=== PATIENT | male | born 1965 | race Caucasian/White ===

== ENCOUNTER → 2023-11-11 12:35 | Outpatient (REF) | payer OTHER, SELFPAY | LOC: REG 12:35 | PROVIDERS: ATTENDING PHYSICIAN Family Medicine | DX: R05.1 Acute cough (principal); R04.2 Hemoptysis | CPT/HCPCS: 71046 ==

== ENCOUNTER 2024-12-04 15:35 | Emergency (ER) | payer OTHER, SELFPAY ==
[2024-12-04 16:42] LABS: % Basophils 0.6 % (0-2); % Eosinophils 0.4 % (0-6); % Immature Granulocytes 0.3 % (0-0.5); % Lymphocytes 10.5 % (20.5-51.1); % Monocytes 4.5 % (1.7-9.3); % Neutrophils 83.7 % (42.2-75.2); Absolute Basophils 0.1 10^3/uL (0-0.2); Absolute Eosinophils 0.1 10^3/uL (0-0.7); Absolute Lymphocytes 1.3 10^3/uL (1.2-3.4); Absolute Monocytes 0.6 10^3/uL (0.1-0.6); Absolute Neutrophils 10.3 10^3/uL (1.4-6.5); Hematocrit 45.7 % (39.0-52.0); Hemoglobin 16.1 g/dL (13.0-18.0); Mean Corp Hgb Conc. 35.2 g/dL (33.0-37.0); Mean Corpuscular Hgb 32.9 pg (27.0-31.0); Mean Corpuscular Volume 93.5 fL (80.0-94.0); Mean Platelet Volume 10.4 fL (7.4-10.4); Nucleated Red Blood Cells % 0 % (-); Platelet Count 200 10^3/uL (130-400); Red Blood Cell Count 4.89 10^6/uL (4.70-6.10); Red Cell Dist. Width 11.6 % (11.5-14.5); White Blood Cell Count 12.3 10^3/uL (4.8-10.8)
[2024-12-04 17:01] LABS: ALT (SGPT) 24 U/L (0-50); AST (SGOT) 21 U/L (17-59); Albumin 4.4 g/dl (3.5-5.0); Alkaline Phosphatase 70 U/L (38-126); Blood Urea Nitrogen 24 mg/dl (9-20); Calcium 9.9 mg/dl (8.4-10.2); Carbon Dioxide 24 mmol/L (22-30); Chloride 105 mmol/L (98-107); Glucose 219 mg/dl (70-99); Potassium 4.5 mmol/L (3.5-5.1); Sodium 139 mmol/L (135-145); Total Bilirubin 0.8 mg/dl (0.2-1.3); Total Protein 6.8 g/dl (6.3-8.2); eGFR > 60.00
[2024-12-04] MEDS: NSS 1000 IV (17:21)
[2024-12-04] MEDS: ZOFRAN 4 MG IV ×2 (18:03→21:22)
[2024-12-04] MEDS: DILAUDID 1 MG IV (18:03)
--- NOTE | 2024-12-04 18:13 | ED.GENMED ---
History of Present Illness
General
Chief Complaint: Flank Pain
Source: patient
Exam Limitations: none
Time Seen by Provider: 12/04/24 17:38
Nursing documentation reviewed up to this point in time: agreed with
History of Present Illness
History of Present Illness:
59-year-old male presenting to the emergency department today with concerns of 2 days of right-sided flank pain. To mild urinary symptoms and nausea. Went to urgent care was sent to the ER for assessment of possible kidney stone. He has not had
kidney stones in the past this feels similar.. Denies any fevers vomiting chest pain shortness of breath
Past History
Past History
ED Past Medical History: NIDDM and Other (Kidney stones)
Social History
Tobacco: Non-smoker
Review of Systems
Review of Systems
Allergies reviewed?: Yes
All Other Systems: ROS reviewed and negative except as documented in HPI and ROS
Phy Exam
Physical Exam
Physical Exam:
GENERAL: Alert , in no apparent distress
EYE: pupils equal and reactive
NECK: Supple, no significant adenopathy.
ENT: o/p clr, mmm.
CARDIAC: Regular rate and rhythm .
LUNGS: Clear breath sounds bilaterally, no acute respiratory distress, no wheezes/rales/rhonchi
ABDOMEN: Soft, without focal tenderness, no r/g, no cvat
NEUROLOGICAL: Alert and oriented, no focal neuro deficits
SKIN: Warm and dry, skin intact.
MUSCULOSKELETAL: No edema, well perfused.
PSYCH: Normal and appropriate interaction.
Course
Orders/Labs/Results
Orders:
Orders
12/04/24 16:23
CT Abd/pelvis Wo Iv Cont Urgent
Comment:
Reason For Exam: right flank pain
12/04/24 16:27
Complete Blood Count/With Diff Urgent
Comprehensive Metabolic Panel Urgent
12/04/24 17:21
0.9% Sodium Chloride 1000 ml [Nss] 1,000 ml IV BOLUS
12/04/24 17:52
HYDROmorphone [Dilaudid] 1 mg IV NOW STA
12/04/24 17:56
Ondansetron Injectable [Zofran] 4 mg IV NOW STA
12/04/24 19:41
Lorazepam [Ativan] 1 mg IV NOW STA
12/04/24 20:53
Urinalysis Reflex To Culture Urgent
Date Specimen was Collected: 12/04/24
Time Specimen was Collected: 20:48
Urine Microscopic Reflex Cult Urgent
12/04/24 21:10
HYDROmorphone [Dilaudid] 0.5 mg IV NOW STA
Ondansetron Injectable [Zofran] 4 mg IV NOW STA
Abnormal Lab Results
12/04/24 12/04/24
16:27 20:53
WBC 12.3 H 10^3/uL
(4.8-10.8)
MCH 32.9 H pg
(27.0-31.0)
Absolute Neuts (auto) 10.3 H 10^3/uL
(1.4-6.5)
Neutrophils % 83.7 H %
(42.2-75.2)
Lymphocytes % 10.5 L %
(20.5-51.1)
BUN 24 H mg/dl
(9-20)
Glucose 219 H mg/dl
(70-99)
Urine Ketones 3+ A
(Negative)
Ur Occult Blood Reflex 4+ A
(Negative)
Urine RBC 40-50 A /HPF
(0-2)
Urine Bacteria (Reflex) Few A
(Negative)
Urine Glucose 4+ A
(Negative)
Urine Albumin (Reflex) 2+ A
(Neg - Trace)
12/04/24 16:27
12/04/24 16:27
Vital Signs
Initial and Last Documented VS:
Initial Vital Signs
Temp Pulse Resp BP Pulse Ox
98.4 F 91 16 153/99 99
12/04/24 16:02 12/04/24 16:02 12/04/24 16:02 12/04/24 16:02 12/04/24 16:02
Last Documented Vital Signs
Temp Pulse Resp BP Pulse Ox
98.4 F 88 16 130/79 95
12/04/24 16:02 12/04/24 21:25 12/04/24 21:25 12/04/24 21:25 12/04/24 21:25
MDM/Problems Addressed
MDM/Problems Addressed:
59-year-old male presenting to the emergency department today with concerns of 2 days of right-sided flank pain associated nausea no vomiting diarrhea no chest pain or shortness of breath. No fevers. On arrival blood pressure elevated otherwise
vital signs are normal. Patient appears uncomfortable was given increased pain medications previously was given Toradol 60 mg at the urgent care. Patient was also given fluids. Plan for CT scan for further assessment possible kidney stone.
Patient found to have a 6 mm obstructing stone. Case discussed with urology recommending trial of passage and outpatient follow-up. Patient okay with plan discharge return precautions given.
*Critical Care Note
Total Time (30-74mins, 75-104mins- exclusive of procedures): Not Applicable
ED Attending Note
-
Portions of this chart may have been created with voice recognition software.� Occasional wrong word or��sound alike� substitutions may have occurred due to the inherent limitations of voice recognition software.
Discharge Plan
Departure
Patient Disposition: Home (Routine Discharge)
Date of Disposition: 12/04/24
Time of Disposition: 21:20
Patient with high blood pressure during this ER visit?: No
Condition: Good
Covid-19: Not Applicable
Discharge Problem:
Calculus, ureteral
Instructions: Kidney Stones (DC), How to Strain Your Urine, Narcotic Pain Medication
Prescriptions:
New
ketorolac 10 mg tablet
10 mg PO Q8H PRN (Reason: Pain) 4 Days Qty: 10 0RF
oxycodone 5 mg tablet
5 mg PO Q8H PRN (Reason: Pain) Qty: 7 0RF
ondansetron 4 mg tablet,disintegrating
4 mg PO Q6H PRN (Reason: nausea and vomiting) Qty: 7 0RF
tamsulosin [Flomax] 0.4 mg capsule
0.4 mg PO HS Qty: 7 0RF
No Action
meloxicam 15 mg Tablet
15 mg PO DAILY
losartan 25 mg Tablet
25 mg PO DAILY
insulin aspart U-100 [Novolog FlexPen U-100 Insulin] 100 unit/mL (3 mL) Insulin Pen
12 unit SC TID
rosuvastatin 5 mg Tablet
5 mg PO DAILY
omega 2-eki-fsi-fish oil [Fish Oil] 1,200 (144-216) mg Capsule
1 cap PO DAILY
Referrals:
Gary Causey DO [Family Provider] -
Rommel Sofia Jr., MD [Active] - Follow up in 5-7 days
Activity Restrictions/Additional Instructions:
You came to the emergency department today with concerns of flank pain. You are found to have a kidney stone. Please follow closely with urology and take the prescribed medications to help with symptoms. Return for any worsening, new or
concerning symptoms.
Interventions
Interventions:
*Risk Screen - Suicide Last Done: 12/04/24 16:02
*General Assessment Last Done: 12/04/24 17:16
*Neglect/Abuse Screening Last Done: 12/04/24 16:02
ED- Fall Risk Assessment Last Done: 12/04/24 17:18
*ED COVID-19 Vaccine History Last Done: 12/04/24 17:16
*Nursing Disposition Last Done: 12/04/24 21:57
LP-Zdimhb-Vcbqwzuopl Assessment Last Done: 12/04/24 19:57
ED-Male Genitourinary Assessment Last Done: 12/04/24 19:57
Discharge Date and Time
Discharge Date/Time: 12/04/24 21:57
Print Language: AZERI
[2024-12-04] MEDS: ATIVAN 1 MG IV (19:49)
--- NOTE | 2024-12-04 19:59 | EDRN ---
Pt was brought back from CT and tech informed this RN she was unable to complete scan because pt claustrophobic and needs medication to relax him. [place] TRAYLOR informed. Pt says his pain/nausea were better after dilaudid and zofran however when he
went to CT it started getting worse. Pt says he tried to lie on the table three times without success, understands his head will not be in the scanner. Pt expressed concern about his arms having to be raised above his head, that it wasn't normal.
Pt said he once took 3 xanax to get an MRI and had to be guided to the table. Pt has someone picking him up when/if he is discharged. Pt urinated in urinal - this RN strained the urine, no stone noted. Pt medicated with ativan IV, sitting on side
of stretcher listening to music.
[2024-12-04 21:00] LABS: Urine Albumin 2+ (Neg - Trace); Urine Bilirubin Negative (Negative); Urine Character Clear (Clear); Urine Color Yellow; Urine Glucose 4+ (Negative); Urine Ketone 3+ (Negative); Urine Leukocyte Negative (Negative); Urine Nitrite Negative (Negative); Urine Occult Blood 4+ (Negative); Urine Urobilinogen Negative (Neg - 1+)
[2024-12-04] MEDS: DILAUDID 0.5 MG IV (21:25)
[2024-12-04 21:42] LABS: Urine Bacteria Few (Negative); Urine Red Blood Cell 40-50 /HPF (0-2); Urine White Cell 0-2 /HPF (0-5)
== END 2024-12-04 21:57 | disposition home or self-care (01) ==
LOC: EMR 15:35
PROVIDERS: Emergency Medicine; Physician Assistant; EMERGENCY PHYSICIAN Emergency Medicine; FAMILY PHYSICIAN Family Medicine
DX: N20.1 Calculus of ureter (principal); R11.0 Nausea; E11.9 Type 2 diabetes mellitus without complications; Z87.442 Personal history of urinary calculi
CPT/HCPCS: 99284; 96374; 96375 ×2; 96361; 96376 ×2; 74176; 80053; 81003; 81015; 85025

== ENCOUNTER 2024-12-07 06:30 | Day surgery (SDC) | payer OTHER, SELFPAY ==
[2024-12-07 08:38] LABS: Glucose - Point of Care 324 mg/dl (70-99)
[2024-12-07] MEDS: TYLENOL 1000 MG PO (08:45)
[2024-12-07] MEDS: NORMOSOL-R/PLASMALYTE-A 1000 IV (08:46)
[2024-12-07 10:12] LABS: Glucose - Point of Care 234 mg/dl (70-99)
[2024-12-07] MEDS: NOVOLOG vial 2 UNITS SC (10:32)
[2024-12-07] MEDS: ZOFRAN 4 MG IV (10:52)
== END 2024-12-07 11:40 | disposition home or self-care (01) ==
LOC: SDS 06:30
PROVIDERS: ATTENDING PHYSICIAN Specialist
DX: N20.2 Calculus of kidney with calculus of ureter (principal)
CPT/HCPCS: 52356; 74018; 76000; 82365; 82962; 93005; C1894; C2617

== ENCOUNTER 2025-07-25 20:40 | Inpatient (IN) | payer OTHER, SELFPAY ==
[2025-07-25 14:24] VITALS: BP 173/90
--- NOTE | 2025-07-25 14:46 | ED.GENMED ---
History of Present Illness
General
Chief Complaint: Flank Pain
Source: patient
Time Seen by Provider: 07/25/25 14:32
History of Present Illness
History of Present Illness:
60-year-old male with past medical history of hypertension, hyperlipidemia, insulin-dependent diabetes, previous kidney stones presenting to the emergency department for evaluation of a sudden onset of left flank pain described to be mild on Thursday
evening and Thursday while on vacation in [facility], symptoms felt similar to previous kidney stones although patient noted that the pain seemed to subside Thursday evening. Today while at home pain started again suddenly with much more intense
in the left flank radiating towards the left lower abdomen accompanied with some mild nausea but no vomiting. Patient states he feels an urge to urinate but states he only has a little bit of urine when he does attempt to micturate. Patient
without any fevers, chills, rigors, bowel changes, hematuria or dysuria, testicular pain, urethral discharge or bleeding or any other concerns presently. Contacted his primary care provider to obtain pain medication and outpatient CT but was the to
the ER for further evaluation. He does note that he required a stent last January for a kidney stone previously.
Past History
Past History
ED Past Medical History: HTN, Hypercholesterolemia, IDDM and Other (Kidney stones)
ED Past Surgical History: Urological
Social History
Tobacco: Non-smoker
Alcohol: Occasional
Drug: None
Personal:
Living: with family
Review of Systems
Review of Systems
All Other Systems: ROS reviewed and negative except as documented in HPI and ROS
Phy Exam
Physical Exam
Physical Exam:
GENERAL: Alert , appears uncomfortable, pacing in room
EYE: clear conjunctiva b/l
HEAD: NCAT
ENT: o/p clr, mmm.
CARDIAC: Regular rate and rhythm .
LUNGS: Clear breath sounds bilaterally, no acute respiratory distress, no wheezes/rales/rhonchi
ABDOMEN: Soft, without focal tenderness, no r/g, no cvat
NEUROLOGICAL: Alert and oriented
SKIN: Warm and dry, skin intact.
MUSCULOSKELETAL: well perfused.
PSYCH: Normal and appropriate interaction.
Scores
Heart Failure Risk
Heart Failure Risk Score: Not Applicable
Heart Score for Chest Pain Patients
STEMI patient?: Not applicable
Withdrawal Assessment of Alcohol
Withdrawal Assessment Completed?: Not applicable
Course
Orders/Labs/Results
Orders:
Orders
07/25/25 14:33
0.9% Sodium Chloride 1000 ml [Nss] 1,000 ml IV BOLUS
Ketorolac [Toradol] 30 mg IV NOW STA
Ondansetron Injectable [Zofran] 4 mg IV NOW STA
07/25/25 14:46
CT Abd/pel Without Iv Or Oral Urgent
Comment:
Reason For Exam: left flank pain, hx of stones
07/25/25 14:53
Complete Blood Count/With Diff Urgent
Comprehensive Metabolic Panel Urgent
Lipase Urgent
Urinalysis Reflex To Culture Urgent
Date Specimen was Collected: 07/25/25
Time Specimen was Collected: 14:40
Urine Microscopic Reflex Cult Urgent
Urine Culture Urgent
SCOTTY Source: U
Specimen Description:
Date Specimen was Collected: 07/25/25
Time Specimen was Collected: 14:40
07/25/25 15:39
HYDROmorphone [Dilaudid] 0.5 mg IV NOW STA
07/25/25 16:17
HYDROmorphone [Dilaudid] 0.5 mg IV NOW STA
07/25/25 17:07
Clonazepam [Klonopin] 1 mg PO NOW STA
07/25/25 19:53
Admit/Transfer Patient As Directed
Co-Sign Provider:
Level of Care: Inpatient admission
Assign to:: Medical/Surgical
Physician / Group: Tiffany
Diagnosis: left obstructing ureteral stone
Reason for Hospitalization: left obstructing ureteral stone
Expected length of stay greater than two midnights?: Yes
ELOS- Estimated Length of Stay in days: 2
I certify the patient meets the requirements for IP care: Yes
Code Status As Directed
Resuscitation Status: Full Code
PRN Pain Medication Management As Directed
May give lesser potent ordered pain med per pt: Yes
preference::
Protocol:: Medication orders for pain may be administered in a
manner that supports deferring to patient preference
when the pt is:
- Requesting an ordered lesser potent pain medication.
Least to most potent pain medications are defined
as: acetaminophen < NSAID < tramadol < opioids
(morphine, oxycodone, hydromorphone).
- Requesting a lesser dose of the same medication IF
ORDERED.
- Requesting a less intrusive route of administration
if both routes are prescribed by the provider (PO <
IV).
Abnormal Lab Results
07/25/25
14:53
Hgb 18.3 H g/dL
(13.0-18.0)
MCH 32.7 H pg
(27.0-31.0)
MPV 10.9 H fL
(7.4-10.4)
Absolute Neuts (auto) 7.2 H 10^3/uL
(1.4-6.5)
Absolute Monos (auto) 0.9 H 10^3/uL
(0.1-0.6)
Lymphocytes % 18.3 L %
(20.5-51.1)
Chloride 96 L mmol/L
(98-107)
BUN 43 H mg/dl
(9-20)
Glucose 206 H mg/dl
(70-99)
Calcium 11.3 H mg/dl
(8.4-10.2)
Total Bilirubin 1.8 H mg/dl
(0.2-1.3)
Total Protein 8.5 H g/dl
(6.3-8.2)
Albumin 5.3 H g/dl
(3.5-5.0)
Urine Ketones 2+ A
(Negative)
Ur Occult Blood Reflex 4+ A
(Negative)
Urine Bilirubin 1+ A
(Negative)
Leukocyte Esterase Rfl 1+ A
(Negative)
Urine RBC 11-15 A /HPF
(0-2)
Urine Bacteria (Reflex) Few A
(Negative)
Urine Glucose 2+ A
(Negative)
Urine Albumin (Reflex) 3+ A
(Neg - Trace)
07/25/25 14:53
07/25/25 14:53
Vital Signs
Initial and Last Documented VS:
Initial Vital Signs
Temp Pulse Resp BP Pulse Ox
98.1 F 121 20 173/90 96
07/25/25 14:24 07/25/25 14:24 07/25/25 14:24 07/25/25 14:24 07/25/25 14:24
Last Documented Vital Signs
Temp Pulse Resp BP Pulse Ox
98.2 F 95 16 130/97 99
07/25/25 16:52 07/25/25 16:52 07/25/25 16:52 07/25/25 16:52 07/25/25 16:52
MDM/Problems Addressed
Differential Diagnosis Includes:
Renal/ureteral colic
Pyelonephritis
Prostatitis
Dissection
Diverticulitis
Pancreatitis
Colitis
MDM/Problems Addressed:
60-year-old male presenting to the ER for evaluation of sudden onset left-sided flank pain accompanied with nausea. Symptoms initially started this past Thursday evening while on vacation, seem to have subsided by Thursday. Today pain much worse with
sudden onset and similar to previous kidney stone pain. Will obtain labs and CT imaging. Treatment with Toradol, Zofran and fluids. Reassessment following.
Chronic conditions affecting care: Other (Previous kidney stones)
*Radiology
Radiology exam reviewed: radiology read reviewed
*Pulse Oximetry
SaO2: 96
Oxygen Mode of Delivery: Room air
Patient hypoxic: no
*Critical Care Note
Total Time (30-74mins, 75-104mins- exclusive of procedures): Not Applicable
Data Reviewed
Review of Other/Old Records Reveals: Labs and Records
Comment
Comment:
3:40 PM: Patient with minimal relief following Toradol. Nausea improved. Will treat with half a milligram of Dilaudid for additional pain control.
Patient noted slight relief with 1/2 mg of Dilaudid but pain persisted so an additional half milligram was given. Patient went to CT scan and had a panic attack which he states is related to claustrophobia. I did treat with a half a milligram of
Klonopin. Patient was able to then go to CT scan.
Patient Management
Discussion with other providers: Hospitalist and Clerical Secretary
Escalation/DeEscalation of care consider admission/obs:
Patient CT scan shows a large 8 mm mid left ureteral stone with hydronephrosis. Given the size of the stone as well as need for previous stenting in the past, decision was made to admit the patient with urology in consultation. Urology came to the
bedside to evaluate the patient and did offer a stent but that he would likely further procedure. Patient ultimately opted to forego this for more permanent and one-time solution and going to the emergency department. Hospitalist team was notified
and accepts for continued evaluation and treatment.
ED Attending Note
-
Portions of this chart may have been created with voice recognition software.� Occasional wrong word or��sound alike� substitutions may have occurred due to the inherent limitations of voice recognition software.
Discharge Plan
Departure
Patient Disposition: Admit
Date of Disposition: 07/25/25
Time of Disposition: 19:05
Presentation/result/management discussed w/ accepting MD/DO: Hospitalist
Discharge Problem:
Ureterolithiasis
Prescriptions:
No Action
meloxicam 15 mg Tablet
15 mg PO DAILY
losartan 25 mg Tablet
25 mg PO DAILY
insulin aspart U-100 [Novolog FlexPen U-100 Insulin] 100 unit/mL (3 mL) Insulin Pen
12 unit SC TID
rosuvastatin 5 mg Tablet
5 mg PO DAILY
omega 1-zby-wxh-fish oil [Fish Oil] 1,200 (144-216) mg Capsule
1 cap PO DAILY
ketorolac 10 mg tablet
10 mg PO Q8H PRN (Reason: Pain) 4 Days Qty: 10 0RF
oxycodone 5 mg tablet
5 mg PO Q8H PRN (Reason: Pain) Qty: 7 0RF
ondansetron 4 mg tablet,disintegrating
4 mg PO Q6H PRN (Reason: nausea and vomiting) Qty: 7 0RF
tamsulosin [Flomax] 0.4 mg capsule
0.4 mg PO HS Qty: 7 0RF
Referrals:
Gary Causey DO [Family Provider, Family Practice]
Interventions
Interventions:
*Risk Screen - Suicide Last Done: 07/25/25 14:24
*General Assessment Last Done: 07/25/25 14:24
CM-Mcflbj-Qreocueqyd Assessment Last Done: 07/25/25 15:13
ED-Male Genitourinary Assessment Last Done: 07/25/25 15:13
Discharge Date and Time
Print Language: MONGOLIAN
[2025-07-25] MEDS: NSS 1000 IV (14:50)
[2025-07-25] MEDS: ZOFRAN 4 MG IV ×2 (14:50→21:01)
[2025-07-25] MEDS: TORADOL 30 MG IV (14:50)
[2025-07-25 14:55] VITALS: BMI 29.2
[2025-07-25 15:10] LABS: Hematocrit 49.7 % (39.0-52.0); Hemoglobin 18.3 g/dL (13.0-18.0); Mean Corp Hgb Conc. 36.8 g/dL (33.0-37.0); Mean Corpuscular Volume 88.8 fL (80.0-94.0); Nucleated Red Blood Cells % 0 % (-); Platelet Count 252 10^3/uL (130-400); Red Cell Dist. Width 11.5 % (11.5-14.5)
[2025-07-25 15:15] LABS: ALT (SGPT) 24 U/L (0-50); AST (SGOT) 22 U/L (17-59); Albumin 5.3 g/dl (3.5-5.0); Alkaline Phosphatase 67 U/L (38-126); Blood Urea Nitrogen 43 mg/dl (9-20); Calcium 11.3 mg/dl (8.4-10.2); Carbon Dioxide 28 mmol/L (22-30); Chloride 96 mmol/L (98-107); Estimated Creatinine Clearance 62 ml/min; Glucose 206 mg/dl (70-99); Lipase 179 U/L (23-300); Potassium 3.9 mmol/L (3.5-5.1); Sodium 135 mmol/L (135-145); Total Protein 8.5 g/dl (6.3-8.2); eGFR > 60.00
[2025-07-25] MEDS: DILAUDID 0.5 MG IV ×3 (15:43→23:27)
[2025-07-25 16:06] LABS: Urine Character Slightly Cloudy (Clear)
[2025-07-25 16:24] LABS: Urine Squamous Cell 0-2 /LPF (Few)
[2025-07-25 16:52] VITALS: BP 130/97
[2025-07-25] MEDS: KLONOPIN 1 MG PO (17:17)
--- NOTE | 2025-07-25 19:36 | HPS.HSE ---
Family Physician
-
Family Physician: Gary Causey
Chief Complaint
-
Flank pain
History of Present Illness
This is a 60-year-old male with past medical history significant nephrolithiasis, CKD, insulin-dependent diabetes, hypertension presenting to the emergency department with flank pain.
Patient reports onset of symptoms on Thursday with sharp left-sided flank pain with associated nausea but no vomiting. Denies having any fever. He does report occasional cold sweats. He reports loss of appetite and decreased p.o. intake. He denies
any dysuria. He denies any hematuria.
Patient has prior history of nephrolithiasis and has had stone extractions in the past.
Patient reported that his symptoms actually improved in the last 30 hours up until this afternoon when he had recurrence of very sharp left-sided flank pain again without fevers or chills.
In the Emergency Department patient was afebrile, blood pressure was 130/97 with a pulse of 95, he was satting 99% on room air.
White count was 10.2, hemoglobin and platelets were normal with a hemoglobin of 18.3.
Electrolytes were normal. BUN and creatinine were 43 and 1.3 with a glucose of 200.
UA had 1+ leukocyte esterase with negative WBCs and few bacteria.
CT abdomen pelvis showing a 8 mm mid left ureteral calculus with associated mild left hydroureteronephrosis.
Medical History
Past Medical History
Past Medical History: Reports HTN, Hypercholesterolemia, IDDM and Other (REGINE nephrolithiasis)
Past Surgical History: Reports Urological
Social History
Tobacco: Former Smoker
Alcohol: Former
Drug: None
Personal:
Living: With Family
Family History
Family History: Not pertinent
Allergies / Home Medications
Allergies reflects when Allergies were last updated in [employer].
Home Medications with original date entered in [employer]
Allergy/Medication List:
Allergies
Allergy/AdvReac Type Severity Reaction Status Date / Time
No Known Allergies Allergy Verified 07/25/25 14:25
Home Medications
insulin aspart U-100 100 unit/mL (3 mL) subcutaneous pen (Novolog FlexPen U-100 Insulin aspart) 12 unit SC TID 12/04/24
ketorolac 10 mg tablet 10 mg PO Q8H PRN Pain 4 days #10 tabs 12/04/24
losartan 25 mg tablet 25 mg PO DAILY 12/04/24
meloxicam 15 mg tablet 15 mg PO DAILY 12/04/24
omega 7-sfv-zyr-fish oil 1,200 mg (144 mg-216 mg) capsule (Fish Oil) 1 cap PO DAILY 12/04/24
ondansetron 4 mg disintegrating tablet 4 mg PO Q6H PRN nausea and vomiting #7 tabs 12/04/24
oxycodone 5 mg tablet 5 mg PO Q8H PRN Pain #7 tabs 12/04/24
rosuvastatin 5 mg tablet 5 mg PO DAILY 12/04/24
tamsulosin 0.4 mg capsule (Flomax) 0.4 mg PO HS #7 caps 12/04/24
Review of Systems
-
Constitutional: Reports No Symptoms
EENT: Reports No Symptoms
Respiratory: Reports No Symptoms
Cardiac: Reports No Symptoms
Abdomen/GI: Reports No Symptoms
: Reports Flank Pain
Musculoskeletal: Reports No Symptoms
Skin: Reports No Symptoms
Neurological: Reports No Symptoms
Endocrine: Reports No Symptoms
Hematologic/Lymphatic: Reports No Symptoms
Psych: Reports No Symptoms
Physical Exam
Vital Signs
Vital Signs
Temp Pulse Resp BP Pulse Ox
98.2 F 95 16 130/97 99
07/25/25 16:52 07/25/25 16:52 07/25/25 16:52 07/25/25 16:52 07/25/25 16:52
Physical Exam
General: Well Developed, Well Nourished and No Apparent Distress
HEENT: NormoCephalic, Moist mucous membranes and Atraumatic
Respiratory: Clear
Cardiac: S1/S2 and Regular Rhythm; No Murmur or Rub
GI: Soft, Non Tender, Non Distended and Normal Bowel Sounds; No Organomegaly
Rectal: Deferred by Provider
Musculoskeletal: No Clubbing, No Cyanosis and No Edema
Skin: No Rash
Neuro: Nonfocal/grossly intact
Laboratory Results
-
07/25/25 14:53
07/25/25 14:53
Laboratory Results
Total Bilirubin 1.8 mg/dl (0.2-1.3) H 07/25/25 14:53
AST 22 U/L (17-59) 07/25/25 14:53
ALT 24 U/L (0-50) 07/25/25 14:53
Alkaline Phosphatase 67 U/L (38-126) 07/25/25 14:53
Lipase 179 U/L (23-300) 07/25/25 14:53
Data Reviewed
-
CT Scan: Report Reviewed by me
Lab Data: Labs Reviewed by me
Old Records: Reviewed
Impression/Plan
-
IMPRESSION:
60-year-old male with history of nephrolithiasis presenting with left-sided flank pain without fevers chills or signs of systemic infection and found to have obstructing 8 mm left ureteral calculus with mild left hydroureteronephrosis.
PLAN:
Obstructing 8 mm left ureteral stone
- Admit to [facility]
- Patient offered urostomy tube tonight for pain control pending definitive treatment but deferred, he will be admitted for plans for treatment on
- Diet as tolerated for now until Thursday night
- IV fluids
- Pain control
-Continue tamsulosin
- Antiemetics
- No signs of acute infection, will monitor for now off antibiotics
- Urine cultures have been sent
- Urology consulted and following
Diabetes
- Patient on Lantus 24 at bedtime, continue with 12.5 at bedtime for now
- Sliding scale insulin
Hypertension
- Continue losartan
REGINE -not taking BiPAP
- Monitor for now, nocturnal O2 as needed
DVT prophylaxis�SCDs
CODE STATUS�full code
[2025-07-25 20:00] VITALS: BP 131/98
--- NOTE | 2025-07-25 20:20 | W.PN.URO.CBU ---
Today's Communication / Plan
-
on op schedule
Assessment / Plan
-
offerred pt jj sten pt prefers trial of passage anfd if fails defintive procedure left u/l/s this week
Diagnosis
-
Date of Service: July 25, 2025
-
Patient Diagnosis:
left 8 mm stone colic non toxic
Post Op Day:
Subjective
-
pain no systemic complaints
Objective
-
Vital Signs
Temp Pulse Resp BP Pulse Ox
98.2 F 95 16 130/97 99
07/25/25 16:52 07/25/25 16:52 07/25/25 16:52 07/25/25 16:52 07/25/25 16:52
Laboratory Results
07/25/25 14:53
07/25/25 14:53
Review of Systems
-
: Flank Pain
Physical Exam
-
General - well developed, well nourished, no acute distress m non toxic
Chest - clear bilaterally
Abdomen - soft, non-tender, positive bowel sounds, no CVAT, no incisional pain or distention
Genitalia - normal
Rectal - normal
Skin - warm & dry with no rash
Neuro - AOx3, no motor deficits
Extremities - no clubbing, no cyanosis, no edema
Incision - clean, dry
Dressing - clean, dry, intact
Counseling
-
strain urine
Care Review
Data Reviewed
Discussed with: Hospitalist and Nursing
CT Scan: Image Pers Reviewed
[2025-07-25] MEDS: ANCEF 10 IV (21:01)
[2025-07-25] MEDS: DILAUDID 1 MG IV (21:02)
[2025-07-25] MEDS: LR 1000 IV (22:48)
[2025-07-25] MEDS: FLOMAX 0.4 MG PO (22:50)
[2025-07-25] MEDS: TYLENOL 650 MG PO (22:57)
[2025-07-25 23:23] VITALS: BP 132/78; BMI 29.2
[2025-07-25] MEDS: COMPAZINE 5 MG IV (23:26)
[2025-07-26 00:11] LABS: Glucose - Point of Care 164 mg/dl (70-99)
[2025-07-26] MEDS: LANTUS 0.12 UNITS SC (00:11)
[2025-07-26] MEDS: DILAUDID 1 MG IV ×6 (04:46→21:22)
[2025-07-26] MEDS: ZOFRAN 4 MG IV ×2 (04:47→10:58)
[2025-07-26 07:24] VITALS: BP 133/82
[2025-07-26 07:25] LABS: Glucose - Point of Care 168 mg/dl (70-99)
[2025-07-26] MEDS: CRESTOR 5 MG PO (07:49)
[2025-07-26] MEDS: LR 1000 IV ×2 (07:49→17:39)
[2025-07-26] MEDS: COZAAR 25 MG PO (07:49)
[2025-07-26] MEDS: NOVOLOG FLEXPEN-LOW RESISTANCE SC ×3 (08:01→17:39)
[2025-07-26 08:14] LABS: Hematocrit 41.7 % (39.0-52.0); Hemoglobin 14.8 g/dL (13.0-18.0); Mean Corp Hgb Conc. 35.5 g/dL (33.0-37.0); Mean Corpuscular Volume 90.8 fL (80.0-94.0); Platelet Count 158 10^3/uL (130-400); Red Cell Dist. Width 11.7 % (11.5-14.5)
--- NOTE | 2025-07-26 08:18 | W.PN.URO.CBU ---
Today's Communication / Plan
-
npo at hs please obtain insulin and iv orders from hospialist
Assessment / Plan
-
trial of passage but unlikely to pass Did conxsent for op room in am manage diabetes npo at hs
Diagnosis
-
Date of Service: July 26, 2025
-
Patient Diagnosis:
Post Op Day:
Patient Diagnosis:
left 8 mm stone colic non toxic
Post Op Day:
Subjective
-
still pain no fevr chills
Objective
-
Vital Signs
Temp Pulse Resp BP Pulse Ox
97.5 F 89 18 132/78 96
07/25/25 23:23 07/25/25 23:23 07/25/25 23:23 07/25/25 23:23 07/25/25 23:23
Intake and Output
07/25/25 07/26/25 07/27/25
06:59 06:59 06:59
Intake Total 0 / 0
Balance 0 / 0
Intake:
Oral fluids 0 / 0
Other:
Number of approximated MODERATE 1
amounts of urine
Laboratory Results
07/26/25 06:44
Review of Systems
-
: Flank Pain
Physical Exam
-
General - well developed, well nourished, no acute distress
Chest - clear bilaterally
Abdomen - soft, non-tender, positive bowel sounds, no CVAT, no incisional pain or distention
Genitalia - normal
Rectal - normal
Skin - warm & dry with no rash
Neuro - AOx3, no motor deficits
Extremities - no clubbing, no cyanosis, no edema
Incision - clean, dry
Dressing - clean, dry, intact
Counseling
-
op room
Care Review
Data Reviewed
Discussed with: Nursing
--- NOTE | 2025-07-26 08:42 | W.PN.HOSP.TC ---
Today's Communication/Plan
-
Renewed IV fluid
Continue analgesic
Monitor glucose on reduced insulin
Trend CBC and temperature curve
N.p.o. at midnight for OR tomorrow with urology
Assessment / Plan
Assessment / Plan
#Obstructing left ureteral stone
- Presented with pain, noted on CT A/P on arrival, 8 mm left-sided ureteral stone
- Was offered nephrostomy in JJ stent in the ED though preferred spontaneous passage
- No signs of infection; urine culture sent on arrival, monitoring off of antibiotics
- Urology planning for OR tomorrow if unable to pass spontaneously
- Will continue IV fluids, tamsulosin and strain urine
- Trend CBC, temperature curve; follow urine culture
- As needed analgesics and antiemetics
- Encourage hydration, low-sodium diet
#IDDM
- Home regimen includes Lantus 24 units nightly, aspart 12 units with meals
- No known microvascular ischemic complications
- Transition to Lantus 12 units with ISS here
- Blood glucose currently at goal, in the 160s
- Monitor Accu-Cheks and uptitrate insulin as needed
#Primary hypertension
- Home regimen includes losartan 25 mg daily
- Blood pressure currently well-controlled
#Dyslipidemia
- No ASCVD history though at risk with IDDM
- Home regimen includes moderate intensity rosuvastatin
#CKD stage II
- Baseline creatinine 1-1.3, GFR in the 60s
- No systemic complications
- Monitor BMP
#REGINE not on CPAP
- Monitor clinically, consider nocturnal O2 as needed
Diet: Diabetic, n.p.o. at midnight
Thromboprophylaxis: SCDs
CODE STATUS: Full code
Disposition: Home once stable
Anticipated Discharge: > 48 hours
Subjective/Interval History
-
Date of Service: July 26, 2025
Seen and examined at the bedside. No acute events reported overnight. AFVSS this
Patient states he feels better, still has intermittent pain when his medicines wear off. Denies new complaints including fevers or chills, dyspnea or chest pain, dysuria
Renal function stable. No leukocytosis
Objective Data
-
Labs:
Laboratory Results
07/26/25
06:44
WBC 10.4
Hgb 14.8
Hct 41.7
Plt Count 158 D
Sodium Pending
Potassium Pending
Chloride Pending
Carbon Dioxide Pending
BUN Pending
Creatinine Pending
Glucose Pending
Calcium Pending
Vital Signs:
Vital Signs
Temp Pulse Resp BP Pulse Ox
98.7 F 94 16 133/82 94
07/26/25 07:24 07/26/25 07:24 07/26/25 07:24 07/26/25 07:24 07/26/25 07:24
I&O
07/25/25 07/26/25 07/27/25
06:59 06:59 06:59
Intake Total 0 / 0
Balance 0 / 0
Review of Systems
-
History Source: Patient
All other systems: Reviewed and negative
Physical Exam
-
General: Well Developed, Well Nourished and No Apparent Distress
HEENT: Normocephalic, Atraumatic, Moist Mucous Membranes and Anicteric
Respiratory: Clear to Auscultation and Non Labored Respirations; Negative Accessory Resp Muscle Use
Cardiac: Regular Rhythm and S1/S2; Negative Murmur, Rub or Gallop
GI: Soft, Nontender, Nondistended and Normal Bowel Sounds
Genito-urinary: No Costovertebral Tender and Other (No flank or suprapubic tenderness)
Musculoskeletal: No Clubbing, No Cyanosis and No Edema
Skin: Warm, Dry and Normal Turgor; Negative Rash
Neuro: AO x 3, Nonfocal/Grossly Intact and Central Nerve's Intact; Negative Tremors
Psych: Calm
[2025-07-26 08:43] LABS: Blood Urea Nitrogen 44 mg/dl (9-20); Calcium 9.7 mg/dl (8.4-10.2); Carbon Dioxide 29 mmol/L (22-30); Chloride 99 mmol/L (98-107); Estimated Creatinine Clearance 57 ml/min; Glucose 154 mg/dl (70-99); Potassium 3.6 mmol/L (3.5-5.1); Sodium 136 mmol/L (135-145); eGFR 57.18
[2025-07-26 12:29] LABS: Glucose - Point of Care 146 mg/dl (70-99)
--- NOTE | 2025-07-26 15:27 | CM ---
Alert awake oriented patient who lives with his Madina who lives in a 2 story home with 2 step to enter and 14 steps to bed and bathroom. He is independent in driving and in all activities of daily living.He was offered VN he declined need.He
uses a Cpap at home
No VN hx / No SNF history
Pharmacy [facility]
PCP DR Causey
PLAN Home Declined V
[2025-07-26 15:57] VITALS: BP 152/87
[2025-07-26 16:54] LABS: Glucose - Point of Care 185 mg/dl (70-99)
[2025-07-26] MEDS: TYLENOL 650 MG PO (17:32)
[2025-07-26] MEDS: TUMS CHEWABLE TABLET 400 MG PO (18:25)
[2025-07-26 21:00] LABS: Glucose - Point of Care 162 mg/dl (70-99)
[2025-07-26] MEDS: FLOMAX 0.4 MG PO (21:22)
[2025-07-26 21:55] LABS: Glucose - Point of Care 161 mg/dl (70-99)
[2025-07-26] MEDS: LANTUS 0.09 UNITS SC (21:56)
[2025-07-26 23:28] VITALS: BP 135/77
[2025-07-26 23:31] LABS: Glucose - Point of Care 149 mg/dl (70-99)
[2025-07-27] VITALS (7 sets, daily range): BP systolic 101–137; BP diastolic 62–84
[2025-07-27] MEDS: LR 1000 IV (02:24)
[2025-07-27 06:45] LABS: Glucose - Point of Care 148 mg/dl (70-99)
[2025-07-27 08:05] LABS: Hematocrit 39.3 % (39.0-52.0); Hemoglobin 13.9 g/dL (13.0-18.0); Mean Corp Hgb Conc. 35.4 g/dL (33.0-37.0); Mean Corpuscular Volume 90.6 fL (80.0-94.0); Nucleated Red Blood Cells % 0 % (-); Platelet Count 160 10^3/uL (130-400); Red Cell Dist. Width 11.6 % (11.5-14.5)
[2025-07-27] MEDS: NOVOLOG FLEXPEN-LOW RESISTANCE SC ×2 (08:16→13:57)
[2025-07-27] MEDS: COZAAR 25 MG PO (08:16)
[2025-07-27] MEDS: CRESTOR 5 MG PO (08:16)
[2025-07-27 08:36] LABS: Blood Urea Nitrogen 33 mg/dl (9-20); Calcium 9.8 mg/dl (8.4-10.2); Carbon Dioxide 31 mmol/L (22-30); Chloride 99 mmol/L (98-107); Estimated Creatinine Clearance 67 ml/min; Glucose 144 mg/dl (70-99); Magnesium 1.6 mg/dl (1.6-2.3); Potassium 4.3 mmol/L (3.5-5.1); Sodium 135 mmol/L (135-145); eGFR > 60.00
--- NOTE | 2025-07-27 10:13 | W.PN.HOSP.TC ---
Today's Communication/Plan
-
N.p.o. for OR today
Continue with analgesia
Follow CBC
Assessment / Plan
Assessment / Plan
#Obstructing left ureteral stone
- Presented with pain, noted on CT A/P on arrival, 8 mm left-sided ureteral stone
- Was offered nephrostomy in JJ stent in the ED though preferred spontaneous passage
- No signs of infection; urine culture was negative, monitoring off of antibiotics
- Urology planning for OR tomorrow if unable to pass spontaneously
- Will continue IV fluids, tamsulosin and strain urine
- Trend CBC, temperature curve; follow urine culture
- As needed analgesics and antiemetics
- Encourage hydration, low-sodium diet
- NPO for OR today
#IDDM
- Home regimen includes Lantus 24 units nightly, aspart 12 units with meals
- No known microvascular ischemic complications
- Transition to Lantus 12 units with ISS here
- Blood glucose currently at goal, in the 160s
- Monitor Accu-Cheks and uptitrate insulin as needed
#Primary hypertension
- Home regimen includes losartan 25 mg daily
- Blood pressure currently well-controlled
#Dyslipidemia
- No ASCVD history though at risk with IDDM
- Home regimen includes moderate intensity rosuvastatin
#CKD stage II
- Baseline creatinine 1-1.3, GFR in the 60s
- No systemic complications
- Monitor BMP
#REGINE not on CPAP
- Monitor clinically, consider nocturnal O2 as needed
Diet: NPO for OR
Thromboprophylaxis: SCDs
CODE STATUS: Full code
Disposition: Home once stable
Anticipated Discharge: Within 24 hours
Subjective/Interval History
-
Date of Service: July 27, 2025
Seen and examined at the bedside. No acute events reported overnight. Mildly tachycardic from pain though otherwise stable on room air and afebrile
Denies any complaints today. Pain currently mild, 4/10 to the left flank. Denies any fevers or chills or dysuria
Denies any other new medical complaints. Labs stable, no leukocytosis
Objective Data
-
Labs:
Laboratory Results
07/27/25
07:11
WBC 8.6
Hgb 13.9
Hct 39.3
Plt Count 160
Sodium 135
Potassium 4.3
Chloride 99
Carbon Dioxide 31 H
BUN 33 H
Creatinine 1.2
Glucose 144 H
Calcium 9.8
Vital Signs:
Vital Signs
Temp Pulse Resp BP Pulse Ox
98.3 F 106 18 161/62 97
07/27/25 07:41 07/27/25 08:16 07/27/25 07:41 07/27/25 08:16 07/27/25 07:41
I&O
07/26/25 07/27/25 07/28/25
06:59 06:59 06:59
Intake Total 0 / 0 0 / 2240
Balance 0 / 0 2239 / 2239
Review of Systems
-
History Source: Patient
All other systems: Reviewed and negative
Physical Exam
-
General: Well Developed, Well Nourished and No Apparent Distress
HEENT: Normocephalic, Atraumatic, Moist Mucous Membranes and Anicteric
Respiratory: Clear to Auscultation and Non Labored Respirations; Negative Accessory Resp Muscle Use
Cardiac: Regular Rhythm, S1/S2 and Tachycardic; Negative Murmur, Rub or Gallop
GI: Soft, Nontender, Nondistended and Normal Bowel Sounds
Genito-urinary: No Costovertebral Tender and Other (No flank or suprapubic discomfort)
Musculoskeletal: No Clubbing, No Cyanosis and No Edema
Skin: Warm and Dry; Negative Rash
Neuro: AO x 3, Nonfocal/Grossly Intact and Central Nerve's Intact
Psych: Calm
Data Reviewed
-
Labs: Labs Reviewed by me and Discussed with Patient
[2025-07-27 13:53] LABS: Glucose - Point of Care 140 mg/dl (70-99)
[2025-07-27] MEDS: DILAUDID 0.5 MG IV (14:06)
--- NOTE | 2025-07-27 14:21 | W.IMMPOSTOP ---
Surgical Immed Post Op Note
-
Primary Surgeon: Peffer
Assisting Surgeon: -
Pre-op Diagnosis: L ureteral stone
Post-op Diagnosis: same
Procedure Performed: Left ureteroscopy, laser, stone removal, stent
Anesthesia Type: gen
Specimen / Cultures: stone
Estimated Blood Loss: none
Complications: none
Operative Findings: stone removed
--- NOTE | 2025-07-27 15:27 | PTCARENOTE ---
pt back from OR s/p Left ureteroscopy, laser, stone removal, stent. pt is AAO*3, Vss, room air. c/o pain, Dilaudid received prior to pt transfer to the floor. pt is oriented to the room. Diet resumed as per Dr. Cabrera. call galindo within the reach.
[2025-07-27 15:57] LABS: Glucose - Point of Care 165 mg/dl (70-99)
[2025-07-27] MEDS: ZOFRAN 4 MG IV (16:18)
[2025-07-27] MEDS: NOVOLOG FLEXPEN-LOW RESISTANCE 1 UNITS SC (17:43)
[2025-07-27] MEDS: DILAUDID 1 MG IV (17:44)
[2025-07-27] MEDS: FLOMAX 0.4 MG PO (20:17)
[2025-07-27 21:38] LABS: Glucose - Point of Care 351 mg/dl (70-99)
[2025-07-27] MEDS: LANTUS 0.12 UNITS SC (21:54)
[2025-07-27] MEDS: NOVOLOG FLEXPEN 6 UNITS SC (21:55)
[2025-07-28 07:00] VITALS: BP 148/74
[2025-07-28 07:42] LABS: Glucose - Point of Care 299 mg/dl (70-99)
[2025-07-28] MEDS: CRESTOR 5 MG PO (08:18)
[2025-07-28] MEDS: COZAAR 25 MG PO (08:18)
--- NOTE | 2025-07-28 08:50 | W.PN.HOSP.TC ---
Today's Communication/Plan
-
Discharge
Assessment / Plan
Assessment / Plan
#Obstructing left ureteral stone
- Was offered nephrostomy in JJ stent in the ED though preferred spontaneous passage
- No signs of infection; urine culture was negative, monitoring off of antibiotics
- Will continue IV fluids, tamsulosin and strain urine
- Trend CBC, temperature curve; follow urine culture
- As needed analgesics and antiemetics
- Encourage hydration, low-sodium diet
- POD 1 from ureteral stent, to follow-up OP with urology
- Follow-up stone studies with urologist
#IDDM
- Home regimen includes 6 units insulin aspart with meals and ISS
- No known microvascular ischemic complications
- Transitioned to Lantus 12 units with ISS here
- Blood glucose currently at goal, in the 160s
- Monitor Accu-Cheks and uptitrate insulin as needed
#Primary hypertension
- Home regimen includes losartan 25 mg daily
- Blood pressure currently well-controlled
#Dyslipidemia
- No ASCVD history though at risk with IDDM
- Home regimen includes moderate intensity rosuvastatin
#CKD stage II
- Baseline creatinine 1-1.3, GFR in the 60s
- No systemic complications
- Monitor BMP
#REGINE not on CPAP
- Monitor clinically, consider nocturnal O2 as needed
Diet: Diabetic diet
Thromboprophylaxis: SCDs
CODE STATUS: Full code
Disposition: Home once stable
Anticipated Discharge: Today
Subjective/Interval History
-
Date of Service: July 28, 2025
Patient examined at the bedside. No acute events reported overnight. AFVSS this morning
Patient states he feels well today, had some intermittent burning sensation initially after stent though improving now
Denies any new complaints this morning. Eager for discharge
Objective Data
-
Labs:
Laboratory Results
07/28/25
07:23
WBC Pending
Hgb Pending
Hct Pending
Plt Count Pending
Sodium Pending
Potassium Pending
Chloride Pending
Carbon Dioxide Pending
BUN Pending
Creatinine Pending
Glucose Pending
Calcium Pending
Vital Signs:
Vital Signs
Temp Pulse Resp BP Pulse Ox
98.6 F 92 18 148/74 97
07/28/25 07:00 07/28/25 08:18 07/28/25 07:00 07/28/25 08:18 07/28/25 07:00
I&O
07/27/25 07/28/25 07/29/25
06:59 06:59 06:59
Intake Total 2240 / 2240 820 / 820
Balance 2240 / 2240 820 / 820
Review of Systems
-
History Source: Patient
All other systems: Reviewed and negative
Physical Exam
-
General: Well Developed, Well Nourished and No Apparent Distress
HEENT: Normocephalic, Atraumatic, Moist Mucous Membranes and Anicteric
Respiratory: Clear to Auscultation and Non Labored Respirations
Cardiac: Regular Rhythm and S1/S2; Negative Murmur, Rub or Gallop
GI: Soft, Nontender, Nondistended and Normal Bowel Sounds
Musculoskeletal: No Clubbing, No Cyanosis and No Edema
Skin: Warm and Dry; Negative Rash
Neuro: AO x 3, Nonfocal/Grossly Intact and Central Nerve's Intact
Psych: Calm
Data Reviewed
-
Labs: Labs Reviewed by me and Discussed with Patient
[2025-07-28 09:03] LABS: Hematocrit 37.7 % (39.0-52.0); Hemoglobin 13.4 g/dL (13.0-18.0); Mean Corp Hgb Conc. 35.5 g/dL (33.0-37.0); Mean Corpuscular Volume 90.6 fL (80.0-94.0); Nucleated Red Blood Cells % 0 % (-); Platelet Count 158 10^3/uL (130-400); Red Cell Dist. Width 11.7 % (11.5-14.5)
[2025-07-28] MEDS: NOVOLOG FLEXPEN-LOW RESISTANCE 3 UNITS SC (09:22)
[2025-07-28] MEDS: NOVOLOG FLEXPEN 6 UNITS SC (09:22)
[2025-07-28 09:32] LABS: Blood Urea Nitrogen 28 mg/dl (9-20); Calcium 8.9 mg/dl (8.4-10.2); Carbon Dioxide 30 mmol/L (22-30); Chloride 99 mmol/L (98-107); Estimated Creatinine Clearance 80 ml/min; Glucose 279 mg/dl (70-99); Magnesium 1.7 mg/dl (1.6-2.3); Potassium 4.2 mmol/L (3.5-5.1); Sodium 135 mmol/L (135-145); eGFR > 60.00
[2025-07-28 11:38] LABS: Glucose - Point of Care 256 mg/dl (70-99)
[2025-07-28] MEDS: NOVOLOG FLEXPEN SC (12:08)
[2025-07-28] MEDS: NOVOLOG FLEXPEN-LOW RESISTANCE SC (12:08)
[2025-07-28 12:35] VITALS: BP 127/71
--- NOTE | 2025-07-28 13:16 | CM ---
MD entered order for discharge.
Pt said he was ready for discharge . Declined VN need.
PLAn Home no needs
--- NOTE | 2025-07-28 16:50 | W.DCSUMMARY ---
Discharge Summary
Discharge Data
Date of Admission: 07/25/25
Date of Discharge: 07/28/25
Total time spent discharging patient (in min): 31
-
Pending Results: No
Hospital Course
Discharging physician: Randall Cabrera DO
Discharge disposition: Home
Primary discharge diagnosis:
Left ureterolithiasis, 8 mm
Status post left ureteral stent
Chronic discharge diagnoses:
IDDM
CKD stage II
REGINE not on CPAP
Primary hypertension
Dyslipidemia
Nephrolithiasis
Hospital course:
60-year-old male with history of nephrolithiasis that presented to the hospital with left flank pain and known ureterolithiasis. CT scan showed 8 mm stone in the left ureter. Was evaluated by urology who placed ureteral stent on 07/27/2025. He
was monitored overnight for discomfort which was minimal. No subsequent hematuria. Urinalysis without signs of urinary tract infection, urine culture ultimately negative. Was discharged on 07/28/2025 with directed to use [id number]-rpc-[id number] Azo as
needed for urinary discomfort. To follow-up in office with urologist for stent retrieval
Consultants:
Urologist�Kiran Barreto MD
Pertinent imaging findings:
CT A/P without contrast (07/25/2025)
IMPRESSION: 8 mm mid left ureteral calculus with associated mild left hydroureteronephrosis. Questionable cystitis.
Procedures:
Left ureteroscopy with stent placement, laser, and stone removal (07/27/2025)
Attending urologist: Kiran Barreto
Specimen / Cultures: stone
Estimated Blood Loss: none
Complications: none
Operative Findings: stone removed
Follow-up:
Family doctor within 1 week
Urologist within 1 to 2 weeks for stent retrieval
Discharge Plan
-
Patient Disposition: Home (Routine Discharge)
Discharge Diagnosis/Procedures: Obstructing left ureterolithiasis
Diabetes mellitus
Condition: Good
Diet: Diabetic, Carb Controlled and No added salt
Additional Diets: Strive for 64 ounces of water intake daily to prevent future kidney stones
Activity: As tolerated
Driving Restrictions: As prior to admission
Bathing Restrictions: None
Activity Restrictions/Additional Instructions:
The urology office will call to schedule you for stent removal in 1-2 weeks
[facility]: [phone]
Blood in the urine off and on is normal while the stent is in place
The stent will cause feeling of needing to urinate frequently
If having burning with urination, you can take phenazopyridine (common brand AZO) available over the counter at your pharmacy
Instructions: Checking your blood sugar at home
Referrals:
Gary Causey DO [Family Provider, Family Practice]
Additional Discharge Medication Instructions: Use ipao-tqn-hrprvvn phenazopyridine (Azo) if you have persistent burning sensation due to your urinary stent
Monitor your blood sugars after meals 3 times daily and write down the numbers in a booklet. Take these numbers with you to your next family doctor's appointment. They will help with adjusting your insulin dosing if needed
Prescriptions:
Continued
losartan 25 mg Tablet
25 mg PO DAILY
insulin aspart U-100 [Novolog FlexPen U-100 Insulin] 100 unit/mL (3 mL) Insulin Pen
6 unit SC TID
rosuvastatin 5 mg Tablet
5 mg PO DAILY
omega 0-ogy-aos-fish oil [Fish Oil] 1,200 (144-216) mg Capsule
1 cap PO DAILY
tamsulosin [Flomax] 0.4 mg capsule
0.4 mg PO HS Qty: 7 0RF
Discontinued
meloxicam 15 mg Tablet
15 mg PO DAILY
Discharge Orders:
Discharge Patient (As Directed); Ordered 07/28/25
Ordered By: Randall Cabrera
Discharge Date and Time
Discharge Date/Time: 07/28/25 12:36
Print Language: UKRAINIAN
[2025-08-02 16:41] LABS: Stone Analysis Mass 12 mg
== END 2025-07-28 12:36 | disposition home or self-care (01) | DRG 661 ==
LOC: 4 EAST ACU 20:40
PROVIDERS: Physician Assistant Medical; Urology; ADMITTING PHYSICIAN Internal Medicine; ATTENDING PHYSICIAN Internal Medicine; CONSULT PHYSICIAN Specialist; EMERGENCY PHYSICIAN Emergency Medicine; FAMILY PHYSICIAN Family Medicine
PROC: 0TJB8ZZ Inspection of Bladder, Via Natural or Artificial Opening Endoscopic (ICD-10-PCS; 2025-07-26)
PROC: 0T778DZ Dilation of Left Ureter with Intraluminal Device, Via Natural or Artificial Opening Endoscopic (ICD-10-PCS; 2025-07-26)
PROC: 0TC78ZZ Extirpation of Matter from Left Ureter, Via Natural or Artificial Opening Endoscopic (ICD-10-PCS; 2025-07-26)
DX: N13.2 Hydronephrosis with renal and ureteral calculous obstruction (principal); I12.9 Hypertensive chronic kidney disease with stage 1 through stage 4 chronic kidney disease, or unspecified chronic kidney disease; N18.2 Chronic kidney disease, stage 2 (mild); E78.5 Hyperlipidemia, unspecified; E11.22 Type 2 diabetes mellitus with diabetic chronic kidney disease; G47.33 Obstructive sleep apnea (adult) (pediatric); F40.240 Claustrophobia; F41.0 Panic disorder [episodic paroxysmal anxiety]; Z87.442 Personal history of urinary calculi; Z87.891 Personal history of nicotine dependence
CPT/HCPCS: 74018; 74176; 76000; 80048; 80053; 81003; 81015; 82365; 82962; 83690; 83735; 85025; 85027; 87086; 96361; 96374; 96375; 96376; 99284; C2617

== ENCOUNTER 2025-07-28 17:34 | Emergency (ER) | payer OTHER, SELFPAY ==
[2025-07-28 18:12] LABS: Urine Character Cloudy (Clear)
[2025-07-28 18:23] LABS: Urine Squamous Cell 0-2 /LPF (Few)
[2025-07-28 18:24] LABS: Urine Red Blood Cell >100 /HPF (0-2); Urine White Cell 30-40 /HPF (0-5)
--- NOTE | 2025-07-28 23:59 | ED.GENMED ---
History of Present Illness
General
Chief Complaint: Flank Pain
Source: patient
Exam Limitations: none
Time Seen by Provider: 07/28/25 23:50
Nursing documentation reviewed up to this point in time: agreed with
History of Present Illness
History of Present Illness:
Patient is a 60-year-old male past medical history of hypertension hyperlipidemia renal stone with stent discharged today presents to the ER complaining of increased pain. Patient initially presented July 25, 4 days ago with left flank pain
and CAT scan showed an 8mm stone in the left ureter. Urology placed a stent on July 27.
Pt reports he was discharged today around 130 and around 3 PM started with increased pain, 10 out of 10. He states he called the nurse at the nurses station from the fourth floor who recommended he come to the ER. The pain was so bad he took his
breath away which is why he came to the ER.
Patient had a CAT scan was done prior to me seeing patient which shows that the left ureteral stent appears well-positioned with no evidence of hydronephrosis.
Pain has improved since being here in the ED.
He denies any fever chills nausea vomiting. He denies any urinary frequency urgency. He did note small amount of blood earlier today with urination
Past History
Past History
ED Past Medical History: HTN, Hypercholesterolemia, IDDM and Other (Kidney stones)
ED Past Surgical History: Urological
Social History
Tobacco: Non-smoker
Alcohol: Occasional
Drug: None
Personal:
Living: with family
Phy Exam
General Physical Exam
General Presentation: well appearing and no apparent distress
General age: appears stated age
General Skin: warm and dry
General Habitus: normal
General Mental: alert
General Hydration: appears well hydrated
Gastrointestinal Exam
Gastrointestinal Exam: non tender and soft
Neurological Exam
Neurological Exam: alert and oriented x3
Musculoskeletal Exam
Musculoskeletal Exam: full ROM and other (No cva tenderness )
Skin Exam
Skin Exam: normal color and warm/dry
Psychiatric Exam
Psychiatric Exam: normal mood/affect
Course
Orders/Labs/Results
Orders:
Orders
07/28/25 17:44
CT Abd/pelvis Wo Iv Cont Urgent
Comment:
Reason For Exam: stent placement check, pt having pain
07/28/25 17:58
Urinalysis Reflex To Culture Urgent
Date Specimen was Collected: 07/28/25
Time Specimen was Collected: 17:44
Urine Microscopic Reflex Cult Urgent
Urine Culture Urgent
SCOTTY Source: U
Specimen Description:
Date Specimen was Collected: 07/28/25
Time Specimen was Collected: 17:44
07/29/25 00:19
IV Insert/Care/Rem.- Treatment PRN
0.9% Sodium Chloride 1000 ml [Nss] 1,000 ml IV BOLUS
HYDROmorphone [Dilaudid] 0.5 mg IV NOW STA
07/29/25 00:47
Complete Blood Count/With Diff Urgent
Comprehensive Metabolic Panel Urgent
Abnormal Lab Results
07/28/25 07/29/25
17:58 00:47
WBC 11.6 H 10^3/uL
(4.8-10.8)
RBC 4.01 L 10^6/uL
(4.70-6.10)
Hgb 12.9 L g/dL
(13.0-18.0)
Hct 36.5 L %
(39.0-52.0)
MCH 32.2 H pg
(27.0-31.0)
MPV 10.7 H fL
(7.4-10.4)
Absolute Neuts (auto) 8.7 H 10^3/uL
(1.4-6.5)
Absolute Monos (auto) 0.9 H 10^3/uL
(0.1-0.6)
Lymphocytes % 16.0 L %
(20.5-51.1)
BUN 30 H mg/dl
(9-20)
Glucose 185 H mg/dl
(70-99)
Total Protein 6.2 L g/dl
(6.3-8.2)
Urine Ketones 1+ A
(Negative)
Ur Occult Blood Reflex 4+ A
(Negative)
Urine Nitrite (Reflex) Positive A
(Negative)
Leukocyte Esterase Rfl 2+ A
(Negative)
Urine RBC >100 A /HPF
(0-2)
Urine WBC (Reflex) 30-40 A /HPF
(0-5)
Urine Bacteria (Reflex) Many A
(Negative)
Urine Glucose 3+ A
(Negative)
Urine Albumin (Reflex) 4+ A
(Neg - Trace)
07/29/25 00:47
07/29/25 00:47
Vital Signs
Initial and Last Documented VS:
Initial Vital Signs
Temp Pulse Resp BP Pulse Ox
98.4 F 117 19 136/90 97
07/28/25 17:37 07/28/25 17:37 07/28/25 17:37 07/28/25 17:37 07/28/25 17:37
Last Documented Vital Signs
Temp Pulse Resp BP Pulse Ox
97.8 F 90 18 136/77 96
07/29/25 00:55 07/29/25 00:55 07/29/25 00:55 07/29/25 00:55 07/29/25 00:55
MDM/Problems Addressed
Differential Diagnosis Includes:
not limited to Stent pain , infection/ UTI
MDM/Problems Addressed:
As documented patient is a 60-year-old male who was just discharged today after having 8 mm stone in his left ureter. He had a stent placed he went home and came back with increased pain. He denies any fevers. Patient was initially ordered pain
medicine here in the ER however he declined. CAT scan done which shows that the stent is in place without hydronephrosis.
White count minimally elevated urinalysis with 30�40 white blood cells along with nitrates. BUN 30 pt was hydrated here
Patient remains very comfortable no acute distress well-appearing..
Case reviewed with Dr. Salazar on-call who does recommend treating with 5 days of cefdinir and sending prescription for Flomax tramadol for pain and patient should take Azo twice a day. I did speak with patient we will give him a dose of tramadol
for this evening and will also give a dose of Flomax and cefdinir we will send prescription to the pharmacy I did review with patient [id number] Azo.
He is to return if any worsening of symptoms
Chronic conditions affecting care:
Diabetes/ kidney stone
*Radiology
Radiology exam reviewed: radiology read reviewed
*Pulse Oximetry
SaO2: 97
Oxygen Mode of Delivery: Room air
Patient hypoxic: no
*Critical Care Note
Total Time (30-74mins, 75-104mins- exclusive of procedures): Not Applicable
Patient Management
Discussion with other providers: [employer] (urology DR salazar )
ED Attending Note
-
Portions of this chart may have been created with voice recognition software.� Occasional wrong word or��sound alike� substitutions may have occurred due to the inherent limitations of voice recognition software.
Discharge Plan
Departure
Patient Disposition: Home (Routine Discharge)
Date of Disposition: 07/29/25
Time of Disposition: 02:23
Patient with high blood pressure during this ER visit?: Yes
Condition: Fair
Covid-19: Not Applicable
Discharge Problem:
Acute flank pain
Instructions: Flank Pain (DC), BLOOD PRESSURE, Narcotic Pain Medication
Prescriptions:
New
tamsulosin [Flomax] 0.4 mg capsule
0.4 mg PO DAILY Qty: 7 0RF
tramadol 50 mg tablet
50 mg PO TID PRN (Reason: Pain) Qty: 10 0RF
cefdinir 300 mg capsule
300 mg PO BID Qty: 10 0RF
No Action
losartan 25 mg Tablet
25 mg PO DAILY
insulin aspart U-100 [Novolog FlexPen U-100 Insulin] 100 unit/mL (3 mL) Insulin Pen
6 unit SC TID
rosuvastatin 5 mg Tablet
5 mg PO DAILY
omega 7-els-uva-fish oil [Fish Oil] 1,200 (144-216) mg Capsule
1 cap PO DAILY
tamsulosin [Flomax] 0.4 mg capsule
0.4 mg PO HS Qty: 7 0RF
Referrals:
Gary Causey DO [Family Provider, Family Practice]
Rommel Salazar Jr., MD [Active, Urology]
Activity Restrictions/Additional Instructions:
As discussed please continue to take Azo twice a day [id number]
In addition prescriptions were sent for Flomax to take daily for the next several days along with tramadol every 8 hours as needed for pain. In addition a prescription for cefdinir antibiotic was sent to the pharmacy take twice a day for the next 5
days. Please increase fluids as you were dehydrated here in the ER.
Increase water intake!!
Return here to the ER if any worsening of symptoms of increased pain nausea vomiting fever chills.
Interventions
Interventions:
*Risk Screen - Suicide Last Done: 07/28/25 17:39
*General Assessment Last Done: 07/28/25 17:39
*Neglect/Abuse Screening Last Done: 07/28/25 17:39
*ED- Fall Risk Assessment Last Done: 07/29/25 00:43
*ED COVID-19 Vaccine History Last Done: 07/28/25 17:39
*ED Influenza Vaccine History Last Done: 07/28/25 17:39
UE-Bcrtbu-Amuknjpthw Assessment Last Done: 07/29/25 00:43
ED-Male Genitourinary Assessment Last Done: 10/18/25 00:45
Discharge Date and Time
Print Language: FRISIAN
[2025-07-29] MEDS: NSS 1000 IV (00:54)
--- NOTE | 2025-07-29 00:55 | EDRN ---
patient reports pain is 0-1/10 and does not feel as if Dilaudid is necessary at this time.
[2025-07-29 00:59] LABS: Hematocrit 36.5 % (39.0-52.0); Hemoglobin 12.9 g/dL (13.0-18.0); Mean Corp Hgb Conc. 35.3 g/dL (33.0-37.0); Mean Corpuscular Volume 91.0 fL (80.0-94.0); Nucleated Red Blood Cells % 0 % (-); Platelet Count 186 10^3/uL (130-400); Red Cell Dist. Width 11.8 % (11.5-14.5)
[2025-07-29 01:17] LABS: ALT (SGPT) 18 U/L (0-50); AST (SGOT) 19 U/L (17-59); Albumin 3.9 g/dl (3.5-5.0); Alkaline Phosphatase 47 U/L (38-126); Blood Urea Nitrogen 30 mg/dl (9-20); Calcium 9.0 mg/dl (8.4-10.2); Carbon Dioxide 30 mmol/L (22-30); Chloride 103 mmol/L (98-107); Estimated Creatinine Clearance 92 ml/min; Glucose 185 mg/dl (70-99); Potassium 3.5 mmol/L (3.5-5.1); Sodium 139 mmol/L (135-145); Total Protein 6.2 g/dl (6.3-8.2); eGFR > 60.00
[2025-07-29] MEDS: ULTRAM 50 MG PO (02:52)
[2025-07-29] MEDS: OMNICEF 300 MG PO (02:52)
[2025-07-29] MEDS: FLOMAX 0.4 MG PO (02:52)
== END 2025-07-29 02:59 | disposition home or self-care (01) ==
LOC: EMR 17:34
PROVIDERS: Emergency Medicine; Nurse Practitioner; EMERGENCY PHYSICIAN Emergency Medicine; FAMILY PHYSICIAN Family Medicine
DX: R10.A2 Flank pain, left side (principal); I10 Essential (primary) hypertension; E78.00 Pure hypercholesterolemia, unspecified; E11.9 Type 2 diabetes mellitus without complications; Z46.6 Encounter for fitting and adjustment of urinary device; Z79.4 Long term (current) use of insulin; Z87.442 Personal history of urinary calculi
CPT/HCPCS: 99284; 96360; 96361; 74176; 80053; 81003; 81015; 85025; 87086